=== PATIENT | female | born 1985 | race Two or more races ===

== ENCOUNTER 2017-09-21 02:57 | Emergency (ER) | payer BC ==
[~2017-09-21] VITALS: Ht 165.1 cm; Wt 90.7 kg
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
--- NOTE | 2017-09-21 03:25 | NUR ---
DR. REYEZ AT BEDSIDE FOR MSE.
[2017-09-21 03:59] LABS: BASOPHILS % (AUTO) 0.4 % (0.0-2.0); EOSINOPHILS # (AUTO) 0.2 K/uL (0.0-0.7); EOSINOPHILS % (AUTO) 1.9 % (0.0-7.0); HEMATOCRIT 35.7 % (31.2-41.9); HEMOGLOBIN 12.5 g/dL (10.9-14.3); LYMPHOCYTES # (AUTO) 2.9 K/uL (20.0-40.0); LYMPHOCYTES % (AUTO) 28.1 % (20.5-51.5); MEAN CORPUSCULAR HEMOGLOBIN 30.4 uug (24.7-32.8); MEAN CORPUSCULAR HGB CONC 35 g/dL (32.3-35.6); MEAN CORPUSCULAR VOLUME 86.8 fL (75.5-95.3); MONOCYTES # (AUTO) 0.6 K/uL (2.0-10.0); MONOCYTES % (AUTO) 6.1 % (0.0-11.0); NEUTROPHILS # (AUTO) 6.6 K/uL (1.8-8.9); NEUTROPHILS % (AUTO) 63.5 % (38.5-71.5); PLATELET COUNT (AUTO) 236 K/uL (179-408); RED BLOOD CELL COUNT(AUTO) 4.12 MIL/uL (3.63-4.92); WHITE BLOOD COUNT (AUTO) 10.3 K/uL (3.8-11.8)
[2017-09-21 04:08] LABS: POTASSIUM 4.1 mmol/L (3.5-5.1)
[2017-09-21 04:13] LABS: BILIRUBIN,DIRECT 0.1 mg/dL (0.0-0.2); BILIRUBIN,TOTAL 0.3 mg/dL (0.2-1.0); TOTAL PROTEIN, SERUM 7.3 g/dL (6.4-8.2)
[2017-09-21] MEDS ORDERED: IV NORMAL SALINE 100 ML ONE (04:28)
[2017-09-21] MEDS ORDERED: NORMAL SALINE FLUSH 10 ML DISP.SYRIN ONE (04:28)
[2017-09-21] MEDS ORDERED: IOHEXOL 350 100 ML INFUS..BTL ONE (04:28)
[2017-09-21] MEDS ORDERED: SWABABLE VALVE TRANSFER SET EA MC ONE ×2 (04:28→04:31)
[2017-09-21 06:27] VITALS: BP 122/69
--- NOTE | 2017-09-21 06:27 | NUR ---
Patient discharged to home in stable conditon. Written and verbal after care instructions given. Patient verbalizes understanding of instructions. PATIENT LEFT WITH STABLE GAIT.
== END 2017-09-21 06:28 | disposition home or self-care (01) ==
LOC: ER 03:00
DX: R07.89 Other chest pain (principal)
CPT/HCPCS: 36415; 70030-TC; 71045; 71275; 85025; 85730; 93005; A4663; J3490; Q9967

== ENCOUNTER 2018-02-27 15:02 | Emergency (ER) | payer BC, OTHER ==
[~2018-02-27] VITALS: Ht 165.1 cm; Wt 90.7 kg
[2018-02-27] MEDS ORDERED: RANI150T43 PO (15:17)
[2018-02-27] MEDS ORDERED: IV NORMAL SALINE 1000 ML BAG IV ONE (15:30)
[2018-02-27 15:43] LABS: BASOPHILS % (AUTO) 0.3 % (0.0-2.0); EOSINOPHILS % (AUTO) 0.4 % (0.0-7.0); HEMATOCRIT 39.4 % (31.2-41.9); HEMOGLOBIN 13.4 g/dL (10.9-14.3); LYMPHOCYTES # (AUTO) 2.1 K/uL (20.0-40.0); MEAN CORPUSCULAR HEMOGLOBIN 30.4 uug (24.7-32.8); MEAN CORPUSCULAR HGB CONC 34 g/dL (32.3-35.6); MEAN CORPUSCULAR VOLUME 89.2 fL (75.5-95.3); MONOCYTES # (AUTO) 0.4 K/uL (2.0-10.0); MONOCYTES % (AUTO) 4.3 % (0.0-11.0); NEUTROPHILS # (AUTO) 7.5 K/uL (1.8-8.9); PLATELET COUNT (AUTO) 273 K/uL (179-408); RED BLOOD CELL COUNT(AUTO) 4.41 MIL/uL (3.63-4.92); WHITE BLOOD COUNT (AUTO) 10.1 K/uL (3.8-11.8)
--- NOTE | 2018-02-27 15:44 | NUR ---
IV PLACED,EKG DONE, LABS DRAWN/SENT, 1L 0.9 NS INFUSING, MONITOR SHOWS NSR, PO2=98% ON RO[place].
[2018-02-27 15:53] LABS: CREATININE 0.8 mg/dL (0.6-1.3)
--- NOTE | 2018-02-27 17:18 | NUR ---
MSE COMPLETED, IV D/C'D WITH CATH INTACT. PT GIVEN ACI AND COPIES OF TESTS. PT AMBULATED W/O DIFF TOOK ALL BELONGINGS.
[2018-02-27 17:20] VITALS: BP 131/62
== END 2018-02-27 17:21 | disposition home or self-care (01) ==
LOC: ER 15:03
DX: R42 Dizziness and giddiness (principal); K21.9 Gastro-esophageal reflux disease without esophagitis
CPT/HCPCS: 36415; 85025; 93005; A4663; J7030